=== PATIENT | male | born 1975 | race Caucasian/White ===

== ENCOUNTER 2024-03-10 22:30 | Emergency (ER) | payer SELFPAY ==
[~2024-03-10] VITALS: Ht 180.3 cm; Wt 59.0 kg
== END 2024-03-11 00:46 | disposition home or self-care (01) ==
LOC: ED 22:30
DX: S02.2XXA Fracture of nasal bones, initial encounter for closed fracture (principal); S09.8XXA Other specified injuries of head, initial encounter; W01.190A Fall on same level from slipping, tripping and stumbling with subsequent striking against furniture, initial encounter; Y93.89 Activity, other specified; Y92.89 Other specified places as the place of occurrence of the external cause; Y99.8 Other external cause status